=== PATIENT | male | born 1990 | race Two or more races ===

== ENCOUNTER 2020-01-16 23:28 | Emergency (ER) | payer SELFPAY ==
[~2020-01-16] VITALS: Ht 180.3 cm; Wt 116.0 kg
[2020-01-16 23:31] VITALS: BP 159/100
[2020-01-17] MEDS ORDERED: INDOMETHACIN 50 MG CAPSULE ONE (00:13)
[2020-01-17] MEDS ORDERED: COLCHICINE 0.6 MG CAPSULE ONE (00:14)
[2020-01-17] MEDS ORDERED: HYDROcodone/APAP 5/325 TABLET ONE (00:14)
== END 2020-01-17 01:08 | disposition home or self-care (01) ==
LOC: ED 01-17 00:45
DX: R06.00 Dyspnea, unspecified (principal); F41.1 Generalized anxiety disorder; R06.4 Hyperventilation
CPT/HCPCS: 71046; 82962; 93005; 99283